=== PATIENT | male | born 1975 | race Two or more races ===

== ENCOUNTER 2024-01-27 08:38 | Emergency (ER) | payer MEDICAID ==
[~2024-01-27] VITALS: Ht 180.3 cm; Wt 88.6 kg
--- NOTE | 2024-01-27 08:47 | ED.PDOC ---
History of Present Illness HPI Comments A 48 YEAR OLD MALE PRESENTS TO THE ED WITH COMPLAINT OF REQUEST FOR COVID-19 TEST AND WORK NOTE. PATIENT STATES HE TESTED POSITIVE FOR COVID-19 6 DAYS AGO, BUT FEELS BETTER AND HAS NO SYMPTOMS AT THIS TIME . PATIENT IS REQUESTING A WELL CHECK AND A COVID-19 TEST SO HE CAN RETURN TO WORK. PATIENT IS ALSO REQUESTING A NOTE STATING HE IS OKAY TO RETURN TO WORK. PATIENT DENIES FEVER, CHILLS, SHORTNESS OF BREATH, CHEST PAIN, ABDOMINAL PAIN, NAUSEA, VOMITING, HEADACHE, OR OTHER COMPLAINTS. NO OTHER SYMPTOMS OR MODIFYING FACTORS AT THIS TIME. PATIENT IS ALERT, ORIENTED X 4, AND HAS STEADY GAIT. Time Seen by MD: 08:42 Reviewed Notes: Nurses Notes, Medications, Allergies Home Meds Active Scripts Azithromycin (Azithromycin) 500 Mg Tab, 1 TAB PO DAILY, #5 TAB Prov:OSBALDO WALKER 01/27/24 Acetaminophen (Tylenol Extra Strength Fo) 500 Mg Tab, 500 MG PO TID, #30 TAB Prov:OSBALDO WALKER 01/27/24 Information Source: Patient Mode of Arrival: Ambulatory Severity: None Timing: Days Duration: Since onset, Days Prehospital treatment: None Medication Refill: For: Other (REQUEST FOR WORK NOTE AND COVID-19 TEST) Past Medical History PAST MEDICAL HISTORY: Denies Surgical History: Denies all surgeries Family History Family History: Reviewed,noncontributory to illness Social History Smoker: Non-Smoker Alcohol: Denies ETOH Use Drugs: Denies Drug Use Lives In: Home Constitutional: denies: chills, diaphoresis, fatigue, fever, malaise, sweats, weakness, others EENTM: denies: blurred vision, double vision, ear bleeding, ear discharge, ear drainage, ear pain, ear ringing, eye pain, eye redness, hearing loss, mouth pain, mouth swelling, nasal discharge, nose bleeding, nose congestion, nose pain, photophobia, tearing, throat pain, throat swelling, voice changes, others Respiratory: denies: cough, hemoptysis, orthopnea, SOB at rest, shortness of breath, SOB with excertion, stridor, wheezing, others Cardiovascular: denies: chest pain, dizzy spells, diaphoresis, Dyspnea on exertion, edema, irregular heart beat, left arm pain, lightheadedness, palpitations, PND, syncope, others Gastrointestinal: denies: abdomen distended, abdominal pain, blood streaked bowels, constipated, diarrhea, dysphagia, difficulty swallowing, hematemesis, melena, nausea, poor appetite, poor fluid intake, rectal bleeding, rectal pain, vomiting, others Genitourinary: denies: burning, dysuria, flank pain, frequency, hematuria, incontinence, penile discharge, penile sore, pain, testicle pain, testicle swelling, urgency, others Neurological: denies: dizziness, fainting, headache, left sided numbness, left sided weakness, numbness, paresthesia, pre-existing deficit, right sided numbness, right sided weakness, seizure, speech problems, tingling, tremors, weakness, others Musculoskeletal: denies: back pain, gout, joint pain, joint swelling, muscle pain, muscle stiffness, neck pain, others Integumetry: denies: bruises, change in color, change in hair/nails, dryness, laceration, lesions, lumps, rash, wounds, others Allergic/Immunocompromised: denies: Difficulty Healing, Frequent Infections, Hives, Itching, others Hematologic/Lymphatic: denies: anemia, blood clots, easy bleeding, easy bruising, swollen glands, others Endocrine: denies: excessive hunger, excessive sweating, excessive thirst, excessive urination, flushing, intolerance to cold, intolerance to heat, unexplained weight gain, unexplained weight loss, others Psychiatric: denies: anxiety, bipolar disorder, depression, hopeless, panic disorder, schizophrenia, sleepless, suicidal, others All Other Systems: Reviewed and Negative Physical Exam General Appearance: No Apparent Distress, Normal HEENT: Normal ENT Inspection, PERRL/EOMI, Pharynx Normal, TMs Normal Neck: Full Range of Motion, Non-Tender, Normal, Normal Inspection Respiratory: Chest Non-Tender, Lungs Clear, No Accessory Muscle Use, No Respiratory Distress, Normal Breath Sounds Cardiovascular: No Edema, No JVD, No Murmur, No Gallop, Normal Peripheral Pulses, Regular Rate/Rhythm Breast Exam: Deferred Gastrointestinal: No Organomegaly, Non Tender, No Pulsatile Mass, Normal Bowel Sounds, Soft Genitalia: Deferred Pelvic: Deferred Rectal: Deferred Extremities: No calf tenderness, Normal capillary refill, Normal inspection, Normal range of motion, Non-tender, No pedal edema Musculoskeletal : Apperance: Normal Neurologic: Alert, 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 Was a procedure done?: No Differential Dx Considerations may include: WELL CHECK, REQUEST FOR COVID 19 TEST X-Ray, Labs, Meds, VS Vital Signs Date Time Temp Pulse Resp B/P (MAP) Pulse Ox O2 Delivery O2 Flow Rate FiO2 01/27/24 10:06 98.8 96 16 151/88 (109) 97 98.8 01/27/24 10:06 96 16 97 Room Air 01/27/24 08:47 98.8 96 16 151/88 (109) 97 Lab Test 01/27/24 09:00 Range/Units SARS-CoV-2 Antigen (Rapid) Positive *A NEGATIVE X-Ray, Labs, Meds, VS Comment LABS ORDERED: COVID-19 ANTIGEN REVIEWED AND INTERPRETED RESULTS: POSITIVE Time of 1ST Reevaluation: 10:45 Reevaluation 1ST: Improved Patient Education/Counseling: Diagnosis, Treatment, Need For Follow Up Family Education/Counseling: Diagnosis, Treatment, Need For Follow Up Medical Screening: No EMC Exist At This Time Departure 1 Departure Time of Disposition: 10:45 Impression: Primary Impression: SARS-CoV-2 positive Disposition: 01 HOME / SELF CARE / HOMELESS Condition: Stable Additional Instructions: FOLLOW-UP WITH PCP IN 1 TO 2 DAYS. RETURN TO ED FOR ANY NEW OR WORSENING SYMPTOMS. e-Prescriptions Azithromycin (Azithromycin) 500 Mg Tab 1 TAB PO DAILY, #5 TAB Prov: OSBALDO WALKER 01/27/24 Acetaminophen (Tylenol Extra Strength Fo) 500 Mg Tab 500 MG PO TID, #30 TAB Prov: OSBALDO WALKER 01/27/24 Discharged With: Self Critical Care Note Critical Care Time?: No Stability Stability form required: No I personally scribed for OSBALDO WALKER ([email or web address]) on 01/27/24 at 10:34. Electronically submitted by Geo Montaño ([email or web address]). OSBALDO WALKER Jan 27, 2024 08:47
[2024-01-27 10:06] VITALS: BP 151/88; PULSE 96; RESP 16; TEMP 98.8; O2SAT 97
[2024-01-27 10:28] LABS: COVID19 ANTIGEN SOFIA FIA POSITIVE (NEGATIVE)
[2024-01-27] MEDS ORDERED: AZIT500T66 PO (10:44)
[2024-01-27] MEDS ORDERED: ACET-1304 PO (10:44)
== END 2024-01-27 10:45 | disposition home or self-care (01) ==
LOC: ER 08:38
DX: U07.1 COVID-19 (principal)
CPT/HCPCS: 36415; 87426